=== PATIENT | female | born 1995 | race Caucasian/White ===

== ENCOUNTER 2017-10-25 13:01 | Emergency (ER) | payer MEDICAID ==
--- NOTE | 2017-10-25 14:20 | EDM.PDOC ---
ED HPI GENERAL MEDICAL PROBLEM - General Chief Complaint: ENT Problem Stated Complaint: PUS POCKETS IN THROAT Time Seen by Provider: 10/25/17 13:55 Source of Information: Reports: Patient History Limitations: Reports: No Limitations - History of Present Illness INITIAL COMMENTS - FREE TEXT/NARRATIVE: 22-year-old female presents for evaluation and treatment of a sore throat. Patient reports that she is a sore throat for the last 2 days. Reports associated symptoms of nausea and odynophagia. She is unsure if she's had any fevers that she has not taken her temperature. No vomiting. Reports a slight cough. She also reports some soreness to the lateral sides of her neck. patient reports that she frequently gets an infection in her throat. She is normally put on antibiotics and given pain medication. She is visiting [place] from [place]. Throat Pain Score (Numeric/FACES): 9 - Related Data Allergies Allergy/AdvReac Type Severity Reaction Status Date / Time ceftriaxone [From Rocephin] Allergy Swelling Verified 10/25/17 13:21 Home Meds: Home Meds Amoxicillin 500 mg PO BID #20 capsule 10/25/17 [Rx] Lidocaine 2% [Xylocaine 2% Viscous] 15 ml PO Q3HR PRN #1 bottle 10/25/17 [Rx] Past Medical History - Past Health History Medical/Surgical History: Denies Medical/Surgical History Social & Family History - Tobacco Use Smoking Status *Q: Current Every Day Smoker Years of Tobacco use: 4 Packs/Tins Daily: 0.3 - Recreational Drug Use Recreational Drug Use: No ED ROS ENT - Review of Systems Review Of Systems: See Below Constitutional: Denies: Fever HEENT: Reports: Throat Pain, Other (reports odynophagia). Denies: Ear Pain Respiratory: Reports: Cough (Slight) GI/Abdominal: Reports: Nausea. Denies: Vomiting ED EXAM, ENT - Physical Exam Exam: See Below Exam Limited By: No Limitations General Appearance: Alert, WD/WN, No Apparent Distress, Obese, Other (Acutely ill-appearing) Ears: Normal External Exam, Normal Canal, Hearing Grossly Normal, Normal TMs Nose: Normal Inspection Mouth/Throat: Normal Inspection, Normal Gums, Normal Lips, Pharyngeal Erythema, Tonsillar Erythema, Tonsillar Exudates Neck: Lymphadenopathy (L), Lymphadenopathy (R) Respiratory/Chest: No Respiratory Distress, Lungs Clear, Normal Breath Sounds Cardiovascular: Normal Peripheral Pulses, No Murmur, Tachycardia Neurological: Alert, Oriented, Normal Cognition Psychiatric: Normal Affect, Normal Mood Skin: Warm, Dry, Normal Color Course - Vital Signs Last Recorded V/S: Last Vital Signs Temp 37.4 C 10/25/17 13:21 Pulse 114 H 10/25/17 13:21 Resp 20 10/25/17 13:21 BP 136/75 10/25/17 13:21 Pulse Ox 99 10/25/17 13:21 - Orders/Labs/Meds Labs: Laboratory Tests 10/25/17 10/25/17 Range/Units 14:58 14:58 WBC 17.90 H (3.98-10.04) K/mm3 RBC 4.32 (3.98-5.22) M/mm3 Hgb 13.4 (11.2-15.7) gm/L Hct 40.7 (34.1-44.9) % MCV 94.2 (79.4-94.8) fl MCH 31.0 (25.6-32.2) pg MCHC 32.9 (32.2-35.5) g/dl RDW Std Deviation 42.9 (36.4-46.3) fL Plt Count 313 (182-369) K/mm3 MPV 10.9 (9.4-12.3) fl Neut % (Auto) 71.7 H (34.0-71.1) % Lymph % (Auto) 16.9 L (19.3-51.7) % [place] % (Auto) 10.3 (4.7-12.5) % Eos % (Auto) 0.6 L (0.7-5.8) Baso % (Auto) 0.2 (0.1-1.2) % Neut # (Auto) 12.82 H (1.56-6.13) K/mm3 Lymph # (Auto) 3.03 (1.18-3.74) K/mm3 [place] # (Auto) 1.85 H (0.24-0.36) K/mm3 Eos # (Auto) 0.11 (0.04-0.36) K/mm3 Baso # (Auto) 0.03 (0.01-0.08) K/mm3 Manual Slide Review Normal smear Monoscreen Negative (NEGATIVE) - Re-Assessments/Exams Free Text/Narrative Re-Assessment/Exam: 10/25/17 16:10 Rapid strep returned negative. I reviewed the labs with the patient. She has clinically appear to be ill. I'll put her on a short course of amoxicillin and have her follow-up if not much better. Discharge instructions as documented. Departure - Departure Time of Disposition: 16:12 Disposition: Home, Self-Care 01 Condition: Fair Clinical Impression: Pharyngitis - Discharge Information Prescriptions: Lidocaine 2% [Xylocaine 2% Viscous] 15 ml PO Q3HR PRN #1 bottle PRN Reason: Pain Amoxicillin 500 mg PO BID #20 capsule Instructions: Pharyngitis, [id number] Referrals: PCP,None [Primary Care Provider] - Forms: ED Department Discharge Additional Instructions: Amoxicillin 1 Twice a day for 10 days. You are contagious until 24 hours of antibiotic in you, make sure you wash any cups, get a new toothbrush, etc. Strep is spread by saliva. [id number] Tylenol or Motrin as needed for pain relief. Viscous lidocaine 15 mils by mouth every 3 hours as needed for throat pain. Gargle, swallow or spit. Please return to the ER if your symptoms change or worsen. Follow-up with your primary care provider as needed.
== END 2017-10-25 16:35 | disposition home or self-care (01) ==
LOC: JD.ED 13:01
DX: J02.9 Acute pharyngitis, unspecified (principal); F17.210 Nicotine dependence, cigarettes, uncomplicated; Z88.8 Allergy status to other drugs, medicaments and biological substances
CPT/HCPCS: 36415; 85025; 86308; 87081; 87430; 99283